=== PATIENT | female | born 1940 | race Caucasian/White ===

== ENCOUNTER 2022-04-15 13:55 | Inpatient (IN) | payer OTHER ==
[~2022-04-15] VITALS: Ht 160 cm; Wt 63.5 kg
[2022-04-15 13:58] VITALS: BP 161/59
--- NOTE | 2022-04-15 14:00 | NUR ---
PT RECEIVED, CARE ASSUMED. PT BIB EMS FROM [facility]F FOR EVALUATION OF MISSED HD TREATMENT. PT FEELS WARM TO THE TOUCH. CONNECTED TO TELE MONITOR SR 98, ORAL TEMP AT 101. NOTED, HEALING WOUND TO SACRAL AREA. PT IN ROOM, AWAITING TO BE SEEN BY
[2022-04-15 14:28] LABS: WHITE BLOOD COUNT (AUTO) 15.1 K/uL (4.8-10.8)
[2022-04-15 14:49] LABS: ALBUMIN 1.6 g/dL (3.4-5.0); ANION GAP 19.3 (8-16); ASPARTATE AMINOTRANSFERASE 21 U/L (15-37); CARBON DIOXIDE 21.7 mmol/L (21-32); CHLORIDE 97 mmol/L (98-107); GLUCOSE 157 mg/dL (74-106); SODIUM SERUM 133 mmol/L (136-145); TOTAL BILIRUBIN 0.3 mg/dL (0.0-1.0); UREA NITROGEN, BLOOD 56 mg/dL (7-18)
[2022-04-15 14:52] LABS: CREATININE 8.7 mg/dL (0.6-1.3)
[2022-04-15] MEDS ORDERED: ASPIRIN 325 MG TAB PO ONE (14:55)
[2022-04-15 14:59] LABS: BASOPHILS % (AUTO) 0.3 % (0.0-2.0); EOSINOPHILS # (AUTO) 0.2 K/uL (0-0.4); EOSINOPHILS % (AUTO) 1.2 % (0.0-4.0); HEMATOCRIT 27.1 % (36-48); HEMOGLOBIN 8.9 g/dL (12.0-16.0); LYMPHOCYTES # (AUTO) 0.8 K/uL (2.5-16.5); LYMPHOCYTES % (AUTO) 5.1 % (20.5-51.1); MEAN CORPUSCULAR HEMOGLOBIN 27 pg (27-31); MEAN CORPUSCULAR HGB CONC 33 g/dL (33-37); MEAN CORPUSCULAR VOLUME 83.7 fL (80-94); MONOCYTES # (AUTO) 0.6 K/uL (0.8-1.0); MONOCYTES % (AUTO) 3.7 % (1.7-9.3); NEUTROPHILS # (AUTO) 13.6 K/uL (1.8-7.7); NEUTROPHILS % (AUTO) 89.7 % (42.2-75.2); PLATELET COUNT (AUTO) 289 K/uL (140-450); RED BLOOD CELL COUNT(AUTO) 3.24 MIL/uL (4.20-5.40); RED CELL DISTRIBUTION WIDTH 17.3 % (11.6-13.7)
[2022-04-15] MEDS ORDERED: cefTRIAXone 2,000 MG in DEXTROSE 5% 100 ML IV ONE (15:25)
--- NOTE | 2022-04-15 15:31 | NUR ---
PT MOVED TO BED 03 VIA [facility].
[2022-04-15] MEDS ORDERED: cefTRIAXone 1,000 MG VIAL ONE ×2 (15:51→16:21)
[2022-04-15] MEDS ORDERED: SIMV-372 PO (16:02)
[2022-04-15] MEDS ORDERED: ACET-1182 PO (16:02)
[2022-04-15] MEDS ORDERED: OLAN2.5T1 PO (16:02)
[2022-04-15] MEDS ORDERED: AMLO10TA PO (16:02)
[2022-04-15] MEDS ORDERED: FLEPED RC (16:02)
[2022-04-15] MEDS ORDERED: BISA-213 RC (16:02)
[2022-04-15] MEDS ORDERED: QUET25TA PO (16:02)
[2022-04-15] MEDS ORDERED: ACETAMINOPHEN 325 MG TAB PO PRN (16:05)
[2022-04-15] MEDS ORDERED: HYDROmorphone 1 MG/ML AMP IVP PRN (16:05)
[2022-04-15] MEDS ORDERED: HYDROcodone/APAP 5/325 MG 1 TAB TAB PO PRN (16:05)
--- NOTE | 2022-04-15 16:28 | NUR ---
COVID SWAB COLLECTED AND SENT TO LAB.
[2022-04-15] MEDS ORDERED: AZITHROMYCIN 500 MG in DEXTROSE 5% 250 ML IV SCH (17:00)
--- NOTE | 2022-04-15 18:26 | NUR ---
Pt to [facility] 121B from ED. MRSA swab collected and taken to Lab. V/S's obtained, picture of wound to heel taken. Loose stool noted, pt cleaned and changed. Dressing to sacral area changed. Pt on 2L N/C. Oriented to room. Resting in bed, no acute distress noted at this time.
--- NOTE | 2022-04-15 19:29 | NUR ---
1929: 04/15/2022 Reported off to Eve QUISPE.
--- NOTE | 2022-04-15 19:57 | NUR ---
RECEIVED REPORT FROM DAY SHIFT NURSE JL. PATIENT IS AWAKE ALERT ORIENTED. DIALYSIS ONGOING. NO COMPLAINTS OF PAIN. NO DISTRESS. ALL SAFETY PRECAUTIONS ARE IN PLACE. CALL LIGHT WITHIN REACH;.
--- NOTE | 2022-04-15 22:30 | NUR ---
ZITHROMAX IVPB GIVEN AFTER DIALYSIS.
[2022-04-16] VITALS: BP 161/73
[2022-04-16] MEDS: ONDANSETRON 4 MG/2 ML VIAL IVP PRN (00:12)
--- NOTE | 2022-04-16 00:15 | NUR ---
PATIENT VOMITED, PRIza MED GIVEN. Addendum: 04/16/22 at 0509 by Eve May RN RN PATIENT CLEANED AND CHANGED.
[2022-04-16] MEDS ORDERED: DEXTROSE 50% 50 ML SYR IVP PRN (01:55)
[2022-04-16 04:00] VITALS: BP 164/67
[2022-04-16 04:50] LABS: BASOPHILS % (AUTO) 0.1 % (0.0-2.0); EOSINOPHILS % (AUTO) 0.1 % (0.0-4.0); HEMATOCRIT 25.4 % (36-48); HEMOGLOBIN 8.1 g/dL (12.0-16.0); LYMPHOCYTES # (AUTO) 0.4 K/uL (2.5-16.5); LYMPHOCYTES % (AUTO) 2.6 % (20.5-51.1); MEAN CORPUSCULAR HEMOGLOBIN 27 pg (27-31); MEAN CORPUSCULAR HGB CONC 32 g/dL (33-37); MEAN CORPUSCULAR VOLUME 83.4 fL (80-94); MONOCYTES # (AUTO) 0.4 K/uL (0.8-1.0); MONOCYTES % (AUTO) 2.5 % (1.7-9.3); NEUTROPHILS # (AUTO) 15.5 K/uL (1.8-7.7); PLATELET COUNT (AUTO) 235 K/uL (140-450); RED BLOOD CELL COUNT(AUTO) 3.04 MIL/uL (4.20-5.40); RED CELL DISTRIBUTION WIDTH 17.5 % (11.6-13.7); WHITE BLOOD COUNT (AUTO) 16.3 K/uL (4.8-10.8)
[2022-04-16 04:59] LABS: ANION GAP 12.2 (8-16); CARBON DIOXIDE 28.8 mmol/L (21-32); CHLORIDE 105 mmol/L (98-107); GLUCOSE 127 mg/dL (74-106); SODIUM SERUM 142 mmol/L (136-145); UREA NITROGEN, BLOOD 25 mg/dL (7-18)
--- NOTE | 2022-04-16 05:11 | NUR ---
PATIENT SLEEPING. BREATHING NORMAL WITH SYMMETRICAL RISE AND FALL OF THE CHEST.
[2022-04-16 05:44] LABS: CREATININE 4.7 mg/dL (0.6-1.3)
[2022-04-16 06:25] LABS: NEUTROPHILS % (AUTO) 94.7 % (42.2-75.2)
[2022-04-16] MEDS: BLOOD GLUCOSE MONITORING 1 DEV DEV FS SCH ×4 (06:49→21:00)
--- NOTE | 2022-04-16 06:49 | NUR ---
BLOOD SUGAR CHECKED WAS 111 NO INSULIN COVERAGE NEEDED.
--- NOTE | 2022-04-16 07:20 | NUR ---
RECEIVED REPORT FROM [employer] CLAIMS ADJUSTER NURSE DONNIE FOR CONTINUITY OF CARE. PT SHOW NO SIGNS OF DISTRESS OR LABORED BREATHING. PT IS STABLE AT THIS TIME. ALL NEED MEET. WILL CONTINUE TO MONITOR.
--- NOTE | 2022-04-16 07:35 | NUR ---
ENDORSED TO DAY SHIFT NURSE FOR CONTINUITY OF CARE.
[2022-04-16 08:00] VITALS: BP 155/64
[2022-04-16] MEDS: EPOETIN ALFA-EPBX 10,000 UNITS/ML VIAL IV SCH (09:30)
[2022-04-16 12:00] VITALS: BP 147/73
--- NOTE | 2022-04-16 15:00 | NUR ---
FAMILY ASKED IF TO TALKED TO RT. CALLED AND NOTIFIED RT AND THEY STATED HE WOULD BE HERE IN A FEW MINUTES. NOTIFIES FAMILY.
[2022-04-16] MEDS: amLODIPine 5 MG TAB PO SCH (15:06)
[2022-04-16 16:00] VITALS: BP 154/61
[2022-04-16 20:00] VITALS: BP 151/63
--- NOTE | 2022-04-16 20:41 | NUR ---
PATIENT SLEEPING WITH O2 AT 3L NC SATING 92%. RESPIRATION REGULAR NON LABORED. SAFETY MEASURES IN PLACE. BED IN LOWEST POSITION, BED WHEELS LOCKED. HEAD OF BED ELEVATED. CALL LIGHT WITHIN REACH.
[2022-04-16] MEDS: SIMVASTATIN 20 MG TAB PO SCH (21:47)
--- NOTE | 2022-04-16 21:47 | NUR ---
ADMINISTERED SCHEDULED MEDICATIONS DUE.
[2022-04-16] MEDS: INSULIN LISPRO SLIDING SCALE 100 UNITS/ML VIAL SUBQ PRN (22:09)
[2022-04-16] MEDS: AZITHROMYCIN 500 MG in DEXTROSE 5% 250 ML IV SCH (23:14)
[2022-04-17] VITALS: BP 147/65
--- NOTE | 2022-04-17 03:55 | NUR ---
PATIENT HAD BM, PT CLEANED, CHANGED AND REPOSITIONED.
[2022-04-17 04:00] VITALS: BP 154/65
[2022-04-17 05:54] LABS: BASOPHILS # (AUTO) 0.1 K/uL (0.00-0.22); BASOPHILS % (AUTO) 0.5 % (0.0-2.0); EOSINOPHILS # (AUTO) 0.1 K/uL (0-0.4); EOSINOPHILS % (AUTO) 0.6 % (0.0-4.0); HEMATOCRIT 26.9 % (36-48); HEMOGLOBIN 8.6 g/dL (12.0-16.0); LYMPHOCYTES % (AUTO) 6.4 % (20.5-51.1); MEAN CORPUSCULAR HEMOGLOBIN 27 pg (27-31); MEAN CORPUSCULAR HGB CONC 32 g/dL (33-37); MEAN CORPUSCULAR VOLUME 84.1 fL (80-94); MONOCYTES # (AUTO) 0.7 K/uL (0.8-1.0); MONOCYTES % (AUTO) 4.6 % (1.7-9.3); NEUTROPHILS # (AUTO) 13.5 K/uL (1.8-7.7); PLATELET COUNT (AUTO) 328 K/uL (140-450); RED BLOOD CELL COUNT(AUTO) 3.19 MIL/uL (4.20-5.40); RED CELL DISTRIBUTION WIDTH 17.2 % (11.6-13.7); WHITE BLOOD COUNT (AUTO) 15.4 K/uL (4.8-10.8)
[2022-04-17 06:04] LABS: ANION GAP 14.2 (8-16); CARBON DIOXIDE 26.8 mmol/L (21-32); CHLORIDE 105 mmol/L (98-107); GLUCOSE 122 mg/dL (74-106); SODIUM SERUM 142 mmol/L (136-145); UREA NITROGEN, BLOOD 27 mg/dL (7-18)
[2022-04-17 06:14] LABS: CREATININE 5.9 mg/dL (0.6-1.3)
--- NOTE | 2022-04-17 06:14 | NUR ---
RECEIVED A CALL FROM LAB REPORTING CRITICAL LAB VALUE CREATININE 5.9. DR. MAHMOOD MADE AWARE AT 0655 AWAITING FOR REPLY. PATIENT IS A DIALYSIS PT.
[2022-04-17 06:47] LABS: NEUTROPHILS % (AUTO) 87.9 % (42.2-75.2)
[2022-04-17] MEDS: BLOOD GLUCOSE MONITORING 1 DEV DEV FS SCH ×4 (07:02→20:26)
--- NOTE | 2022-04-17 07:15 | NUR ---
ENDORSED PATIENT TO DAY SHIFT NURSE FOR CONTINUITY OF CARE. PATIENT STABLE
[2022-04-17 08:00] VITALS: BP 154/69
--- NOTE | 2022-04-17 09:12 | NUR ---
PATIENT HAS BEEN SCREENED AND CATEGORIZED HIGH NUTRITION RISK. PATIENT WILL BE SEEN WITHIN 1-2 DAYS OF ADMISSION. 04/15/22-04/17/[address] REFERRAL RECEIVED FOR NAUSEA AND VOMITING OVER 3 DAYS.
[2022-04-17] MEDS: ECOTRIN 81 MG TABEC PO SCH (09:21)
[2022-04-17] MEDS: amLODIPine 5 MG TAB PO SCH (09:22)
[2022-04-17] MEDS: ONDANSETRON 4 MG/2 ML VIAL IVP PRN (11:47)
[2022-04-17 12:00] VITALS: BP 155/66
[2022-04-17 16:00] VITALS: BP 135/69
[2022-04-17] MEDS: INSULIN LISPRO SLIDING SCALE 100 UNITS/ML VIAL SUBQ PRN (16:49)
--- NOTE | 2022-04-17 17:45 | NUR ---
04/17/22 RD INITIAL ASSESSMENT COMPLETED. PLEASE REFER TO NUTRITION ASSESSMENT UNDER CARE ACTIVITY FOR ESTIMATED NUTRITIONAL NEEDS. 1. CONTINUE RENAL DIET TOLERATED 2. RECOMMEND PROSOURCE BID + NEPRO TO PROMOTE WOUND HEALING. 3. RD TO FOLLOW-UP 3-5 DAYS, MODERATE RISK ERIC VILLAGRAN RD
--- NOTE | 2022-04-17 19:16 | NUR ---
ENDORSE PATIENT TO PM SHIFT NURSE WHILE REST IN BED IN STABLE CONDITION; PIV AT R. HAND 22G SALINE LOCK; DR. MAHMOOD, DR. PRECIADO AND DR. TOTH SAW PATIENT, DIALYSIS SCHEDULE, PER PATIENT IS MONDAY, MONDAY, & MONDAY.
[2022-04-17 20:00] VITALS: BP 159/70
--- NOTE | 2022-04-17 20:19 | NUR ---
ADMINISTERED SCHEDULED MEDICATIONS.
[2022-04-17] MEDS: SIMVASTATIN 20 MG TAB PO SCH (20:20)
--- NOTE | 2022-04-17 20:27 | NUR ---
PATIENT IS AWAKE ALERT ORIENTED, ON 3L NC TOLERATING WELL. NO DISTRESS NOTED. BREATHING REGULAR NON LABORED. DENIES PAIN. IV ACCESS ON THE RIGHT HAND INTACT AND PATENT. PATIENT WITH RIJ TUNNELED CATHETER DIALYSIS ACCESS. CALL LIGHT WITHIN REACH. SAFETY MEASURES IN PLACE.
[2022-04-17] MEDS: AZITHROMYCIN 500 MG in DEXTROSE 5% 250 ML IV SCH (22:54)
[2022-04-18] VITALS (7 sets, daily range): BP systolic 139–160; BP diastolic 68–87
[2022-04-18 06:16] LABS: BASOPHILS # (AUTO) 0.1 K/uL (0.00-0.22); BASOPHILS % (AUTO) 0.7 % (0.0-2.0); EOSINOPHILS # (AUTO) 0.1 K/uL (0-0.4); EOSINOPHILS % (AUTO) 1.1 % (0.0-4.0); HEMATOCRIT 27.7 % (36-48); HEMOGLOBIN 8.8 g/dL (12.0-16.0); LYMPHOCYTES # (AUTO) 1.1 K/uL (2.5-16.5); LYMPHOCYTES % (AUTO) 8.6 % (20.5-51.1); MEAN CORPUSCULAR HEMOGLOBIN 27 pg (27-31); MEAN CORPUSCULAR HGB CONC 32 g/dL (33-37); MEAN CORPUSCULAR VOLUME 84.8 fL (80-94); MONOCYTES # (AUTO) 0.6 K/uL (0.8-1.0); MONOCYTES % (AUTO) 4.5 % (1.7-9.3); NEUTROPHILS # (AUTO) 11.3 K/uL (1.8-7.7); NEUTROPHILS % (AUTO) 85.1 % (42.2-75.2); PLATELET COUNT (AUTO) 399 K/uL (140-450); RED BLOOD CELL COUNT(AUTO) 3.27 MIL/uL (4.20-5.40); RED CELL DISTRIBUTION WIDTH 17.1 % (11.6-13.7); WHITE BLOOD COUNT (AUTO) 13.2 K/uL (4.8-10.8)
[2022-04-18 06:29] LABS: ANION GAP 16.3 (8-16); CARBON DIOXIDE 24.6 mmol/L (21-32); CHLORIDE 104 mmol/L (98-107); GLUCOSE 105 mg/dL (74-106); POTASSIUM 3.9 mmol/L (3.5-5.1); SODIUM SERUM 141 mmol/L (136-145); UREA NITROGEN, BLOOD 29 mg/dL (7-18)
[2022-04-18 06:35] LABS: CREATININE 6.8 mg/dL (0.6-1.3)
--- NOTE | 2022-04-18 06:35 | NUR ---
LAB CALLED REPORTING CRITICAL LAB VALUE CREATININE 6.8. NOTIFIED ELIAN MCKAY SHUTTLE OPERATOR. AWAITING FOR REPLY.
[2022-04-18] MEDS: BLOOD GLUCOSE MONITORING 1 DEV DEV FS SCH ×4 (06:44→21:13)
--- NOTE | 2022-04-18 06:44 | NUR ---
BLOOD SUGAR CHECKED 93 , NO INSULIN COVERAGE NEEDED.
--- NOTE | 2022-04-18 07:06 | NUR ---
ENDORSED PATIENT TO ALDAIR RN DAY SHIFT NURSE FOR CONTINUITY OF CARE.
[2022-04-18] MEDS: amLODIPine 5 MG TAB PO SCH (09:00)
[2022-04-18] MEDS: ECOTRIN 81 MG TABEC PO SCH (09:50)
[2022-04-18] MEDS ORDERED: AZIT250T3 PO (10:19)
[2022-04-18] MEDS ORDERED: CEPH-588 PO (10:19)
--- NOTE | 2022-04-18 14:15 | NUR ---
Alexei moncada contacted to get a bed for the patient to return after dialysis completed, the admission department stated that patient do not have a bed hold since he is not Medical patient. She wants H&P and all labs, medications, ER notes to decide if to accept the patient. All papers faxed to her at [phone]
--- NOTE | 2022-04-18 19:09 | NUR ---
ENDORSE PATIENT TO PM SHIFT NURSE WHILE REST IN BED IN STABLE CONDITION; PIV AT R. HAND 22G SALINE LOCK; DR. METCALF SAW PATIENT AND DISCHARGE ORDER PRESENT BUT PATIENT IS PENDING TO GO BACK TO [facility] D/T FUND ISSUE.
--- NOTE | 2022-04-18 20:00 | NUR ---
RECEIVED REPORT FROM DAY SHIFT NURSE ALDAIR FOR CONTINUITY OF CARE. PATIENT SLEEPING, RESPIRATION EVEN UNLABORED. NO S/S OF DISTRESS. IV ACCESS ON THE RIGHT HAND INTACT AND PATENT. CALL LIGHT WITHIN REACH. ALL SAFETY PRECAUTIONS ARE IN PLACE.
--- NOTE | 2022-04-18 21:01 | NUR ---
ADMINISTERED SCHEDULED DUE MEDICATIONS.
[2022-04-18] MEDS: SIMVASTATIN 20 MG TAB PO SCH (21:07)
--- NOTE | 2022-04-18 21:13 | NUR ---
BLOOD SUGAR CHECK WAS 143 NO INSULIN COVERAGE NEEDED.
[2022-04-18] MEDS: AZITHROMYCIN 500 MG in DEXTROSE 5% 250 ML IV SCH (23:17)
[2022-04-19] VITALS: BP 176/73
--- NOTE | 2022-04-19 00:10 | NUR ---
PATIENT BP- 176/73 P-91. PAGED HOSPICE/HOME HEALTH AIDE ELIAN NICHOLS. DR CALLES CALLED BACK AT 0022 WITH NEW ORDERS CARRIED OUT.
--- NOTE | 2022-04-19 00:24 | NUR ---
RECHECKED BP- 151/85. HYDRALAZINE HELD.
[2022-04-19 04:00] VITALS: BP 167/78
[2022-04-19] MEDS: hydrALAZINE 20 MG/ML VIAL IVP PRN ×2 (04:18→08:52)
--- NOTE | 2022-04-19 04:18 | NUR ---
PATIENT BP-167/78 P-86 , ADMINISTERED HYDRALAZINE 10 MG IVP.
[2022-04-19] MEDS: BLOOD GLUCOSE MONITORING 1 DEV DEV FS SCH ×4 (06:38→20:53)
[2022-04-19] MEDS: INSULIN LISPRO SLIDING SCALE 100 UNITS/ML VIAL SUBQ PRN ×2 (06:39→17:12)
--- NOTE | 2022-04-19 06:39 | NUR ---
CHECKED BLOOD SUGAR WAS 167 HUMALOG INSULIN ADMINISTERED ORDERED PER SLIDING SCALE.
[2022-04-19 07:00] LABS: CARBON DIOXIDE 32.6 mmol/L (21-32); CHLORIDE 103 mmol/L (98-107); GLUCOSE 114 mg/dL (74-106); POTASSIUM 3.6 mmol/L (3.5-5.1); SODIUM SERUM 143 mmol/L (136-145); UREA NITROGEN, BLOOD 15 mg/dL (7-18)
[2022-04-19 07:03] LABS: BASOPHILS # (AUTO) 0.1 K/uL (0.00-0.22); BASOPHILS % (AUTO) 0.6 % (0.0-2.0); EOSINOPHILS # (AUTO) 0.1 K/uL (0-0.4); EOSINOPHILS % (AUTO) 1.2 % (0.0-4.0); HEMATOCRIT 28.7 % (36-48); HEMOGLOBIN 9.4 g/dL (12.0-16.0); LYMPHOCYTES % (AUTO) 9.9 % (20.5-51.1); MEAN CORPUSCULAR HEMOGLOBIN 27 pg (27-31); MEAN CORPUSCULAR HGB CONC 33 g/dL (33-37); MONOCYTES # (AUTO) 0.6 K/uL (0.8-1.0); MONOCYTES % (AUTO) 6.2 % (1.7-9.3); NEUTROPHILS # (AUTO) 8.2 K/uL (1.8-7.7); NEUTROPHILS % (AUTO) 82.1 % (42.2-75.2); PLATELET COUNT (AUTO) 400 K/uL (140-450); RED BLOOD CELL COUNT(AUTO) 3.42 MIL/uL (4.20-5.40); RED CELL DISTRIBUTION WIDTH 17.2 % (11.6-13.7)
[2022-04-19 07:21] LABS: CREATININE 4.2 mg/dL (0.6-1.3)
--- NOTE | 2022-04-19 07:30 | NUR ---
GAVE REPORT TO NURSE RANKIN FOR CONTINUITY OF CARE. PATIENT STABLE.
[2022-04-19 08:00] VITALS: BP 167/66
[2022-04-19] MEDS: EPOETIN ALFA-EPBX 10,000 UNITS/ML VIAL IV SCH (08:51)
[2022-04-19] MEDS: ECOTRIN 81 MG TABEC PO SCH (08:51)
[2022-04-19] MEDS: amLODIPine 5 MG TAB PO SCH (08:51)
[2022-04-19] MEDS ORDERED: hydrALAZINE 20 MG/ML VIAL IVP PRN (09:20)
--- NOTE | 2022-04-19 11:35 | NUR ---
ASSESSMENT COMPLETED PLAN OF CARE REVIEWED ORIENTED TO ROOM CALL LIGHT IN REACH DISCHARGE ORDER IN PLACE AWAITING BED PER CASE MANAGEMENT
--- NOTE | 2022-04-19 11:39 | NUR ---
PT CHERISE WATERS [phone] NEPHSAULO ROCHA [phone] CAN BE REACHED FOR ANY UDATES
[2022-04-19 12:00] VITALS: BP 154/62
[2022-04-19 16:00] VITALS: BP 154/65
--- NOTE | 2022-04-19 19:00 | NUR ---
RECEIVED PT FROM MORNING SHIFT NURSE. PT IS A0X4, BEDREST, ABLE TO VERBALIZE NEEDS AND ABLE TO FOLLOW COMMANDS. PT HAS 2L NC AND ON RENAL DIET. PT IV ON RIGHT HAND GAUGE 22, SALINE LOCK. PT HAS HEALING WOUND ON SACRAL AND HAS RIGHT HEAL DTI. ALL SAFETY MEASURES IMPLEMENTED. BED IN LOW POSITION, BED WHEELS ON LOCK AND CALL LIGHT WITHIN REACH.
[2022-04-19 20:00] VITALS: BP 135/74
[2022-04-19] MEDS: SIMVASTATIN 20 MG TAB PO SCH (20:45)
--- NOTE | 2022-04-19 20:45 | NUR ---
ALL SCHEDULED MEDICATION WAS GIVEN TO PT PER MD ORDER. ALL SAFETY MEASURES IMPLEMENTED. BED IN LOW POSITION, BED WHEELS ON LOCK AND CALL LIGHT WITHIN REACH.
--- NOTE | 2022-04-19 20:53 | NUR ---
PT BLOOD GLUCOSE IS 136. NO INSULIN COVERAGE NEEDED. ALL SAFETY MEASURES IMPLEMENTED. BED IN LOW POSITION, BED WHEELS ON LOCK AND CALL LIGHT WITHIN REACH.
[2022-04-19] MEDS: AZITHROMYCIN 500 MG in DEXTROSE 5% 250 ML IV SCH (23:15)
--- NOTE | 2022-04-19 23:15 | NUR ---
SCHEDULED AND PRESCRIBED MEDICATION WAS GIVEN TO PT PER MD ORDER. ALL SAFETY MEASURES IMPLEMENTED. BED IN LOW POSITION, BED WHEELS ON LOCK AND CALL LIGHT WITHIN REACH.
[2022-04-20] VITALS: BP 158/78
--- NOTE | 2022-04-20 02:00 | NUR ---
PT IS SLEEPING. CHEST RISE AND FALL SYMMETRICALLY NOTED. RESPIRATION IS EVEN AND UNLABORED. ALL SAFETY MEASURES IMPLEMENTED. BED IN LOW POSITION, BED WHEELS ON LOCK AND CALL LIGHT WITHIN REACH.
[2022-04-20 04:00] VITALS: BP 155/68
--- NOTE | 2022-04-20 04:00 | NUR ---
MORNING CARE WAS DONE TO PT. CHANGED GOWN, LINENS AND CHUCKS. ALL SAFETY MEASURES IMPLEMENTED. BED IN LOW POSITION, BED WHEELS ON LOCK AND CALL LIGHT WITHIN REACH.
[2022-04-20 06:23] LABS: ANION GAP 9.5 (8-16); CARBON DIOXIDE 31.1 mmol/L (21-32); CHLORIDE 101 mmol/L (98-107); GLUCOSE 128 mg/dL (74-106); POTASSIUM 3.6 mmol/L (3.5-5.1); SODIUM SERUM 138 mmol/L (136-145); UREA NITROGEN, BLOOD 18 mg/dL (7-18)
--- NOTE | 2022-04-20 06:30 | NUR ---
PT BLOOD GLUCOSE IS 106. NO INSULIN COVERAGE NEEDED.
[2022-04-20] MEDS: BLOOD GLUCOSE MONITORING 1 DEV DEV FS SCH ×2 (06:31→12:26)
--- NOTE | 2022-04-20 06:46 | NUR ---
NOTIFIED DR. ROGERS REGARDING PT'S CRITICAL VALUE OF CREATININE-4.8
[2022-04-20 07:08] LABS: CREATININE 4.8 mg/dL (0.6-1.3)
--- NOTE | 2022-04-20 07:25 | NUR ---
PT IS STABLE. ENDORSED PT TO MORNING SHIFT NURSE FOR CONTINUITY OF CARE.
--- NOTE | 2022-04-20 07:30 | NUR ---
RECEIVED PT CARE AND REPORT FROM PRANAV QUISPE. PT IS RESTING IN BED SEMI FOWLERS WITH OU CLOSED. NO VISIBLE S/S OF DISTRESS, DISCOMFORT, PAIN OR SOB. CALL LIGHT IS WITHIN REACH, ALL NEEDS MET AT THIS TIME.
--- NOTE | 2022-04-20 07:57 | NUR ---
REPORTED MAGNESIUM LEVEL OF 1.[address] ROGERS. AWAITING ORDERS.
[2022-04-20 07:59] LABS: BASOPHILS # (AUTO) 0.1 K/uL (0.00-0.22); BASOPHILS % (AUTO) 0.8 % (0.0-2.0); EOSINOPHILS # (AUTO) 0.4 K/uL (0-0.4); EOSINOPHILS % (AUTO) 3.4 % (0.0-4.0); HEMATOCRIT 27.4 % (36-48); LYMPHOCYTES # (AUTO) 1.2 K/uL (2.5-16.5); LYMPHOCYTES % (AUTO) 11.4 % (20.5-51.1); MEAN CORPUSCULAR HEMOGLOBIN 28 pg (27-31); MEAN CORPUSCULAR HGB CONC 33 g/dL (33-37); MEAN CORPUSCULAR VOLUME 83.9 fL (80-94); MONOCYTES # (AUTO) 0.7 K/uL (0.8-1.0); MONOCYTES % (AUTO) 6.2 % (1.7-9.3); NEUTROPHILS # (AUTO) 8.4 K/uL (1.8-7.7); NEUTROPHILS % (AUTO) 78.2 % (42.2-75.2); PLATELET COUNT (AUTO) 404 K/uL (140-450); RED BLOOD CELL COUNT(AUTO) 3.26 MIL/uL (4.20-5.40); RED CELL DISTRIBUTION WIDTH 17.2 % (11.6-13.7); WHITE BLOOD COUNT (AUTO) 10.7 K/uL (4.8-10.8)
[2022-04-20 08:00] VITALS: BP 161/70
[2022-04-20] MEDS: amLODIPine 5 MG TAB PO SCH (08:52)
[2022-04-20] MEDS: ECOTRIN 81 MG TABEC PO SCH (08:52)
--- NOTE | 2022-04-20 11:36 | NUR ---
TEXTED DR. ROGERS AGAIN TO REPORT MAGNESIUM LEVEL OF 1.7. AWAITING ORDERS.
--- NOTE | 2022-04-20 11:39 | NUR ---
DR. ROGERS NOT ANALYSIS DIRECTOR TODAY. REPORTED MAGNESIUM LEVEL 1.[address] METCALF. AWAITING ORDERS.
[2022-04-20 12:00] VITALS: BP 152/68
[2022-04-20] MEDS: INSULIN LISPRO SLIDING SCALE 100 UNITS/ML VIAL SUBQ PRN (12:30)
--- NOTE | 2022-04-20 14:05 | NUR ---
ORDER RECEIVED FROM DR. METCALF FOR LOW MAG LEVEL. MAG RIDER 2G ORDERED.
--- NOTE | 2022-04-20 14:28 | NUR ---
DC PLANNING: PATIENT GOT ACCEPTED AT [facility] CAN GO TO ROOM 102B # TO GIVE REPORT [phone] ARRANGED TRANSPORT WITH [place] PASSENGER INTERLINE CLERK TIME 6PM. NOTIFIED JANET HANLEY CM TO FOLLOW
[2022-04-20] MEDS ORDERED: MAG SULF 2000 MG/WATER PREMIX 50 ML IV SCH (15:00)
--- NOTE | 2022-04-20 15:06 | NUR ---
CALLED [facility] AND GAVE REPORT TO ASAD FOR PT TRANSFER. Addendum: 04/20/22 at 1517 by Agency Nurse BRITTANEY Jaime RN ASAD ASKED IF PT RECEIVED HEMODIALYSIS TODAY. PATIENT ON A MWF SCHEDULE. ASKED CHARGE NURSE MARY ABOUT IT AND SHE STATED THAT PATIENT WILL NOT RECEIVE DIALYSIS TODAY. PATIENT RECEIVED DIALYSIS YESTERDAY ACCORDING TO MARY.
[2022-04-20 15:59] VITALS: BP 143/71
--- NOTE | 2022-04-20 17:00 | NUR ---
P.T. NOTES P.T. EVAL COMPLETED; REFER TO EVAL FOR DETAILS.
== END 2022-04-20 17:40 | DRG 871 ==
LOC: MED 13:55 → MTU 14:15 → OBSVTOIN 04-16 16:09
PROVIDERS: ADMIT Internal Medicine; ATTEND Internal Medicine
PROC: 5A1D70Z Performance of Urinary Filtration, Intermittent, Less than 6 Hours Per Day (ICD-10-PCS; principal; 2022-04-15)
PROC: 5A1D70Z Performance of Urinary Filtration, Intermittent, Less than 6 Hours Per Day (ICD-10-PCS; 2022-04-18)
DX: A41.9 Sepsis, unspecified organism (principal); I21.4 Non-ST elevation (NSTEMI) myocardial infarction; J18.9 Pneumonia, unspecified organism; N18.6 End stage renal disease; J96.01 Acute respiratory failure with hypoxia; I12.0 Hypertensive chronic kidney disease with stage 5 chronic kidney disease or end stage renal disease; Z20.822 Contact with and (suspected) exposure to COVID-19; E11.22 Type 2 diabetes mellitus with diabetic chronic kidney disease; E87.70 Fluid overload, unspecified; E78.5 Hyperlipidemia, unspecified; D63.8 Anemia in other chronic diseases classified elsewhere; Z88.0 Allergy status to penicillin; Z86.73 Personal history of transient ischemic attack (TIA), and cerebral infarction without residual deficits
CPT/HCPCS: G0378 ×8; 36415; 71045; 80048; 80053; 82948; 83605; 83690; 83735; 83880; 84484; 85025; 87040; 87081; 93005; J0360; J0456; J0696; J1644; J2405; J3475; J7060; Q0092; Q5106